=== PATIENT | male | born 1960 | race Caucasian/White ===

== ENCOUNTER 2021-05-04 17:55 | Emergency (ER) | payer OTHER ==
[~2021-05-04] VITALS: Ht 170.2 cm; Wt 133.8 kg
== END 2021-05-04 18:51 | disposition home or self-care (01) ==
LOC: ER 18:21
DX: T83.091A Other mechanical complication of indwelling urethral catheter, initial encounter (principal); E11.22 Type 2 diabetes mellitus with diabetic chronic kidney disease; I12.9 Hypertensive chronic kidney disease with stage 1 through stage 4 chronic kidney disease, or unspecified chronic kidney disease; N18.9 Chronic kidney disease, unspecified
CPT/HCPCS: 51700; 99282

== ENCOUNTER 2021-05-11 01:09 | Emergency (ER) | payer OTHER ==
[~2021-05-11] VITALS: Ht 170.2 cm; Wt 133.8 kg
== END 2021-05-11 01:48 | disposition home or self-care (01) ==
LOC: ER 01:27
DX: Z46.6 Encounter for fitting and adjustment of urinary device (principal); R33.9 Retention of urine, unspecified; I10 Essential (primary) hypertension; E11.9 Type 2 diabetes mellitus without complications; N18.9 Chronic kidney disease, unspecified
CPT/HCPCS: 99282

== ENCOUNTER 2021-05-11 09:28 | Emergency (ER) | payer OTHER ==
[~2021-05-11] VITALS: Ht 170.2 cm; Wt 133.8 kg
== END 2021-05-11 11:14 | disposition home or self-care (01) ==
LOC: ER 09:39
DX: T83.011A Breakdown (mechanical) of indwelling urethral catheter, initial encounter (principal); R33.9 Retention of urine, unspecified; I10 Essential (primary) hypertension; E11.9 Type 2 diabetes mellitus without complications; N18.9 Chronic kidney disease, unspecified
CPT/HCPCS: 51700; 87086; 99284

== ENCOUNTER 2021-05-18 17:46 | Emergency (ER) | payer OTHER ==
[~2021-05-18] VITALS: Ht 170.2 cm; Wt 133.8 kg
[2021-05-18 19:00] VITALS: BP 117/76
== END 2021-05-18 18:55 | disposition home or self-care (01) ==
LOC: ER 18:01
DX: Z46.6 Encounter for fitting and adjustment of urinary device (principal); I10 Essential (primary) hypertension; E11.9 Type 2 diabetes mellitus without complications; N18.9 Chronic kidney disease, unspecified
CPT/HCPCS: 99282

== ENCOUNTER 2021-06-29 09:48 | Emergency (ER) | payer OTHER ==
[~2021-06-29] VITALS: Ht 170.2 cm; Wt 133.8 kg
== END 2021-06-29 10:10 | disposition home or self-care (01) ==
LOC: ER 09:57
DX: Z46.6 Encounter for fitting and adjustment of urinary device (principal); I12.9 Hypertensive chronic kidney disease with stage 1 through stage 4 chronic kidney disease, or unspecified chronic kidney disease; E11.22 Type 2 diabetes mellitus with diabetic chronic kidney disease; N18.9 Chronic kidney disease, unspecified
CPT/HCPCS: 99282

== ENCOUNTER 2021-06-30 07:38 | Emergency (ER) | payer OTHER ==
[~2021-06-30] VITALS: Ht 170.2 cm; Wt 133.8 kg
== END 2021-06-30 08:47 | disposition home or self-care (01) ==
LOC: ER 07:42
DX: Z46.6 Encounter for fitting and adjustment of urinary device (principal); R33.9 Retention of urine, unspecified; I12.9 Hypertensive chronic kidney disease with stage 1 through stage 4 chronic kidney disease, or unspecified chronic kidney disease; E11.22 Type 2 diabetes mellitus with diabetic chronic kidney disease; N18.9 Chronic kidney disease, unspecified
CPT/HCPCS: 99282